=== PATIENT | male | born 1940 | race Caucasian/White ===

== ENCOUNTER → 2018-07-30 | Outpatient (CLI) | payer OTHER ==
[2016-05-12 11:00] VITALS: BP 116/72
[~2018-07-30] MED LIST: ASPI325T8 PO; ATOR10TA PO; METO25TA4 PO
--- NOTE | 2018-07-30 11:50 | CARD ---
MR#: [id number] Date of Study: 07/30/2018 Ordering Physician: KATHRYN BRANNON, Referring Physician: KATHRYN BRANNON, Tech: Dalia Peterson APPROVED REPORT EXAM: Two-dimensional and M-mode echocardiogram with Doppler and color Doppler. Other Information Quality : AverageHR: 62bpm Rhythm : Pacemaker INDICATION Arrhythmia Surgery/Intervention Bioprosthetic RISK FACTORS Hyperlipidemia 2D DIMENSIONS Left Atrium(2D)4.7 (1.6-4.0cm)IVSd1.3 (0.7-1.1cm) Aortic Root(2D)4.0 (2.0-3.7cm)LVDd5.1 (3.9-5.9cm) LVOT Diameter2.2 (1.8-2.4cm)PWd1.5 (0.7-1.1cm) IVSs3.1 (0.8-1.2cm) Aortic Valve AoV Peak Castro.242.0cm/sAoV VTI50.4cm AO Peak GR.23.4mmHgLVOT Peak Castro.76.1cm/s LVOT VTI 21.35cmAO Mean GR.15mmHg FRIDA (VMAX)0.22kb3QLD (VTI)1.61cm2 Mitral Valve MV E Fpbymnsu63.4cm/sMV DECEL EMEQ594pl MV A Gluinnau969.9cm/sMV HIJ28rk E/A Ratio0.6MVA (PHT)2.66cm2 TDI E/Lateral E'7.7E/Medial E'14.0 Pulmonary Valve PV Peak Edzyfsva196.5cm/sPV Peak Grad.4mmHg Tricuspid Valve TR P. Jbizprrk845mb/sRAP [id number] TR Peak Gr.85noCtTDOX61doRt Pulmonary Vein PVa [id number] LEFT VENTRICLE The left ventricle is normal size. There is mild concentric left ventricular hypertrophy. Mild LV dys function. EF 45-50% Septal motion suggestive of conduction defect. Otherwise, mild global hypokinesis . EF 45-50% Transmitral Doppler flow pattern is Grade I-abnormal relaxation pattern. RIGHT VENTRICLE The right ventricle is normal size. There is normal right ventricular wall thickness. The right ventr icular systolic function is normal. There is a pacing/ICD lead in the RA/RV ATRIA The left atrium size is mildly dilated. The right atrium size is normal. The interatrial septum is in tact with no evidence for an atrial septal defect or patent foramen ovale as noted on 2-D or Doppler imaging. AORTIC VALVE Doppler and Color Flow revealed trace aortic regurgitation. There is no significant aortic valvular s tenosis. Possible aortic bioprosthesis. Leaflets appear to be calcified. MG 15 mm Hg. No significant aortic stenosis by doppler criteria. MITRAL VALVE Posterior mitral leaflet is calcified. There is no mitral valve stenosis. Doppler and Color-flow reve aled trace mitral regurgitation. TRICUSPID VALVE The tricuspid valve is normal in structure and function. Doppler and Color Flow revealed mild TR. RVS P 30 mm hg. There is no tricuspid valve stenosis. PULMONIC VALVE Doppler and Color Flow revealed no pulmonic valvular regurgitation. There is no pulmonic valvular chuck nosis. GREAT VESSELS The aortic root is normal in size. The IVC was not visualized. PERICARDIAL EFFUSION There is no evidence of significant pericardial effusion. Critical Notification Critical Value: No <Conclusion> Septal motion suggestive of conduction defect. Otherwise, mild global hypokinesis. EF 45-50% There is a pacing/ICD lead in the RA/RV Possible aortic bioprosthesis. Leaflets appear to be calcified. MG 15 mm Hg. No significant aortic st enosis by doppler criteria. Doppler and Color Flow revealed mild TR. RVSP 30 mm hg. Signed by : Davey Salguero, Electronically Approved : 07/30/2018 11:49:07
== END | disposition home or self-care (01) ==
LOC: ECHO 10:01
PROVIDERS: ATTEND Internal Medicine Cardiovascular Disease
DX: I49.9 Cardiac arrhythmia, unspecified (principal); E78.5 Hyperlipidemia, unspecified; I10 Essential (primary) hypertension; E78.00 Pure hypercholesterolemia, unspecified; Z80.0 Family history of malignant neoplasm of digestive organs
CPT/HCPCS: 93306

== ENCOUNTER → 2020-09-30 | Outpatient (CLI) | payer MEDICARE ==
[2016-05-12 11:00] VITALS: BP 116/72
--- NOTE | 2020-10-01 10:27 | CARD ---
MR#: [id number] Date of Study: 09/30/2020 Ordering Physician: KATHRYN BRANNON, Referring Physician: KATHRYN BRANNON, Jesi: Sepideh Murray APPROVED REPORT EXAM: Two-dimensional and M-mode echocardiogram with Doppler and color Doppler. Other Information Quality : FairHR: 73bpm INDICATION Aortic Valve Disease Surgery/Intervention Pacemaker: RISK FACTORS Hypertension Hyperlipidemia 2D DIMENSIONS Left Atrium(2D)5.5 (1.6-4.0cm)IVSd1.7 (0.7-1.1cm) LVDd5.2 (3.9-5.9cm)LVOT Diameter2.2 (1.8-2.4cm) PWd1.3 (0.7-1.1cm)LVDs4.9 (2.5-4.0cm) FS (%) 5.4 %SV15.4 ml LVEF(%)55.0 (>50%) Aortic Valve AoV Peak Castro.227.0cm/sAoV VTI54.0cm AO Peak GR.20.6mmHgLVOT Peak Castro.83.8cm/s AO Mean GR.13mmHgAVA (VMAX)3.44cm2 Mitral Valve MV E Ojwlshem963.6cm/sMV DECEL MVOS298nt MV A Cfbijomp92.0cm/sE/A Ratio1.7 MV A Eqwsvunh395ya Pulmonary Valve PV Peak Opvrbgxu83.6cm/s Tricuspid Valve TR P. Tfhbbgza488hs/sTR Peak Gr.25mmHg Pulmonary Vein S1 Dideojcb34.5cm/sD2 Wirgffrh66.1cm/s PVa [id number] LEFT VENTRICLE The left ventricle is normal size. There is normal left ventricular wall thickness. Left ventricle sy stolic function is mildly decreased. EF 45% Septal motion suggestive of conduction defect/pacing. Mil d global hypokinesis. Tissue Doppler imaging reveals moderate left ventricular diastolic dysfunction. No left ventricle thrombus noted on this study. There is no ventricular septal defect visualized. Th ere is no left ventricular aneurysm. There is no mass noted in the left ventricle. RIGHT VENTRICLE The right ventricle is normal size. There is normal right ventricular wall thickness. The right ventr icular systolic function is normal. Pacemaker lead is noted in the right ventricle. ATRIA The left atrium is mildly dilated. The right atrium size is normal. The interatrial septum is intact with no evidence for an atrial septal defect or patent foramen ovale as noted on 2-D or Doppler imagi ng. AORTIC VALVE Doppler and Color Flow revealed no significant aortic regurgitation. There is no significant aortic v alvular stenosis. Maxium gradient of 22 mmHg and mean pressure gradient of 15 mmHg. There is a biopro sthetic aortic valve prosthesis. The prosthetic aortic valve appears normal. MITRAL VALVE Mitral annular calcification is mild to moderate. There is no evidence of mitral valve prolapse. Ther e is no mitral valve stenosis. Doppler and Color Flow revealed no mitral valve regurgitation noted. TRICUSPID VALVE The tricuspid valve is normal in structure and function. Doppler and Color Flow revealed trace to mil d tricuspid regurgitation with an estimated pulmonary pressure is 28mmHg. There is no tricuspid valve prolapse or vegetation. PULMONIC VALVE Doppler and Color Flow revealed no pulmonic valvular regurgitation. There is no pulmonic valvular chuck nosis. GREAT VESSELS The aortic root is normal in size. 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 The pulmonary britney ry is normal. The IVC is normal in size and collapses >50% with inspiration. PERICARDIAL EFFUSION There is no evidence of significant pericardial effusion. Critical Notification Critical Value: No <Conclusion> Septal motion suggestive of conduction defect/pacing. Mild global hypokinesis. Pacemaker lead is noted in the right ventricle. Left ventricle systolic function is mildly decreased. EF 45% There is a bioprosthetic aortic valve prosthesis. The prosthetic aortic valve appears normal. There is no significant aortic valvular stenosis. Maxium gradient of 22 mmHg and mean pressure gradi ent of 15 mmHg. Doppler and Color Flow revealed trace to mild tricuspid regurgitation with an estimated pulmonary pre ssure is 28mmHg. 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 Signed by : Davey Salguero, Electronically Approved : 09/30/2020 16:50:40
== END ==
LOC: ECHO 12:59
PROVIDERS: ATTEND Internal Medicine Cardiovascular Disease
DX: I08.8 Other rheumatic multiple valve diseases (principal); Z95.2 Presence of prosthetic heart valve; Z95.0 Presence of cardiac pacemaker
CPT/HCPCS: 93306